=== PATIENT | male | born 1995 | race Hispanic/Latino ===

== ENCOUNTER 2017-11-25 14:18 | Emergency (ER) | payer SELFPAY ==
[2017-11-25] MEDS ORDERED: IBUPROFEN 600 MG TABLET ONE (15:19)
[2017-11-25] MEDS ORDERED: METOCLOPRAMIDE 10 MG TABLET ONE (15:19)
== END 2017-11-25 16:06 | disposition home or self-care (01) ==
LOC: EDH 14:18
DX: G43.909 Migraine, unspecified, not intractable, without status migrainosus (principal); Z88.8 Allergy status to other drugs, medicaments and biological substances; Z72.0 Tobacco use

== ENCOUNTER 2019-04-13 11:36 | Emergency (ER) | payer OTHER | END 2019-04-13 12:42 | disposition home or self-care (01) | LOC: EDH 11:36 | DX: G51.0 Bell's palsy (principal); F41.9 Anxiety disorder, unspecified; F32.9 Major depressive disorder, single episode, unspecified; Z72.0 Tobacco use; Z88.8 Allergy status to other drugs, medicaments and biological substances ==

== ENCOUNTER → 2025-09-17 | Emergency (ER) | payer SELFPAY ==
[~2025-09-17] VITALS: Ht 182.9 cm; Wt 108.9 kg
[~2025-09-17] MED LIST: AMOX-426 PO
--- NOTE | 2025-09-17 03:24 | ERN ---
ED Note History of Present Illness Stated Complaint: TOOTHACHE, EARACHE, HEADACHE Chief Complaint: Tooth Ache/Pain Time Seen by MD: 02:46 Dictation: This is a 29-year-old male who presented to the emergency room with complaints of severe toothache in the upper and lower jaws the last molars for the past few days. It has been worse in the last 2 days although he has been having pain off and on. Patient never saw a dentist and has never had any dental maintenance. No fever chills or rigors. Does state that his pain from the teeth radiates to his left side of the ear and he has left-sided headache Temperature 98 pulse 79 respirations 20 blood pressure 155/122 pulse oximetry 98% on room air Allergies: Coded Allergies: bupropion (Unverified Allergy, Unknown, 04/13/19) Past Medical History Past Medical History: No Pertinent History Surgical History: None Family History: Negative Social History: Negative RN Note Reviewed/Agreed w/PFSH: Yes Review of System Dictation Constitutional: Negative for fever,chills, and weight loss Eyes: Negative for injury, pain,redness, and discharge ENT: Negative for injury,pain or swelling severe pain in the upper and lower jaw the last molars with cavities and surrounding gum swelling. Cardiovascular: Negative for chest pain, palpitations, and edema Respiratory: Negative for shortness of breath, cough, and wheezing, Abdomen/GI: Negative for abdominal pain, nausea, vomiting, diarrhea, and constipation Back: Negative for injury and pain : Negative for injury, bleeding and discharge MS/Extremity: Negative for injury and deformity Skin: Negative for rash, and discoloration Neuro: Negative for headache, weakness, numbness, tingling, and seizure Psych: Negative for suicide ideation, homicidal ideation, and hallucinations Initial Vital Sign VS Vital Signs Date Time Temp Pulse Resp B/P (MAP) Pulse Ox O2 Delivery O2 Flow Rate FiO2 09/17/25 02:42 98.1 79 20 155/122 99 Room Air 0 09/17/25 02:47 21 Physical Exam Dictation General: awake, alert, NAD obese male Head/Face: Normocephalic, atraumatic mild facial flushing on the left side Eyes: PERRL, EOMI, vision at baseline ENT: oral cavity clear, TMs clear, no signs of infection left upper and lower jaw the last molars appear decayed with cavities and surrounding gingival swelling. Neck: Trachea midline, supple, no nuchal rigidity Cardiovascular: RRR, normal S1/S2, No MRGs, no JVD Respiratory: CTAB, no respiratory distress, No rales or wheezes Abdomen: Soft, non-tender, non-distended, normal bowel sounds, no guarding or rebound. Skin: Warm, dry, normal turgor, no rash MS/Extremity: Pulses equal, no cyanosis, neurovascular intact, FROM Neuro: COAx4, GCS 15, strength 5/5, CN 2-12 intact, normal cerebellar exam, normal gait, Psych: Normal behavior, mood, and affect normal Extremities-trace edema without any palpable cords, Homans sign is negative ED Course ED Course Orders Procedure Category Date Status Time Hydromorphone 0.5mg PHA 09/17/25 Complete Syg (Dilaudid 0.5mg 03:00 Ondansetron 4mg Inj PHA 09/17/25 Complete (Zofran 4mg Inj) 03:00 Dexamethasone 4mg/Ml PHA 09/17/25 Complete 1ml Vial (Dexametha 03:30 Amox/Clav 875/125mg PHA 09/17/25 Complete Tab (Augmentin 875-1 03:30 Current Medications Medications (Trade) Dose Ordered Sig/Tobias Route PRN Reason Start Time Stop Time Status Last Admin Dose Admin Amoxicillin/ Clavulanate Potassium (Augmentin 875-125 Tablet) 1 each ONCE ONCE PO 09/17/25 03:30 09/17/25 03:31 DC 09/17/25 03:49 Dexamethasone Sodium Phosphate (dexaMETHasone 4MG/ML 1ML VIAL) 6 mg ONCE ONCE IVP 09/17/25 03:30 09/17/25 03:31 DC 09/17/25 03:49 Hydromorphone HCl (DiLAUDid 0.5MG INJ) 0.5 mg ONCE ONCE IVP 09/17/25 03:00 09/17/25 03:01 DC 09/17/25 03:17 Ondansetron HCl (zoFRAN 4MG INJ) 4 mg ONCE ONCE IVP 09/17/25 03:00 09/17/25 03:01 DC 09/17/25 03:18 Vital Signs Date Time Temp Pulse Resp B/P (MAP) Pulse Ox O2 Delivery O2 Flow Rate FiO2 09/17/25 02:47 98.1 79 18 151/122 99 Room Air* 0 21 09/17/25 02:42 98.1 79 20 155/122 99 Room Air 0 Medical Decision Making MDM Differential diagnosis:dental cavities, dental caries, periodontitis, gingivitis, dental abscess This is a 29-year-old male who presented to the emergency room with complaints of severe toothache in the upper and lower jaws the last molars for the past few days. It has been worse in the last 2 days although he has been having pain off and on. Patient never saw a dentist and has never had any dental maintenance. No fever chills or rigors. Does state that his pain from the teeth radiates to his left side of the ear and he has left-sided headache Temperature 98 pulse 79 respirations 20 blood pressure 155/122 pulse oximetry 98% on room air I had a long discussion with the patient about dental hygiene and cavity treatments. I will provide symptomatic pain management as well as an empiric antibiotic therapy however I have recommended that he should see a dental surgeon and have his cavities and teeth addressed If he gets any worse with worsening symptoms high fevers facial swelling, he needs to return to the emergency room. Previous outside records reviewed: Old ER visits. Risk of complication and/or morbidity or mortality of patient management: None Medications-Per medication reconciliation Need for hospitalization: Patient does not meet criteria for hospitalization. Need for emergency major/minor surgery: No There are no social concerns with this patient. Prescription drug management Prescriptions will include symptomatic care Patient's prior external medical records from other ER visits were reviewed by me as indicated. Prior testing and results from previous visits were reviewed. Prior tests were taken into account with medical decision making and resource utilization, independent historian/historians were used to obtain complete medical history. I independently interpreted the test that were performed, results were reviewed by me and considered findings on radiology if ordered. Medical management and examination interpretation discussions were had by me with other qualified healthcare professionals as indicated for the patient's care. Problem List Problem List: (1) Toothache (2) Dental caries (3) Dental cavities DX & DISP Disposition: Discharge Departure Impression: Primary Impression: Toothache Additional Impressions: Dental caries, Dental cavities Condition: Stable Scripts Amoxicillin/Potassium Clav (Augmentin 500-125 Tablet) 500 Mg-125 Mg Tablet 1 TAB PO BID for 10 Days, #20 TAB 0 Refills Prov: THOPU,NATE R MD 09/17/25 Additional Instructions: Patient and the caregiver have been informed of all the diagnostic tests and the imaging conducted during the today's visit to the emergency room and has verbalized understanding of the results I have personally reviewed and interpreted all diagnostic exams performed here in the ER today as well as the vital signs documented by the nursing staff. The patient is now being di scharged to home and should follow up with the primary care physician or the specialist as directed by the ER staff. Referrals: GUY KILPATRICK (PCP) NATE MON MD Sep 17, 2025 03:24
[2025-09-17] MEDS: AMOX/CLAV 875/125MG TAB PO ONE (03:49)
[2025-09-17 04:20] VITALS: BP 142/75; PULSE 72; RESP 20; TEMP 98.1; O2SAT 100
== END ==
LOC: EDH 02:41
DX: K02.9 Dental caries, unspecified (principal); Z88.8 Allergy status to other drugs, medicaments and biological substances
CPT/HCPCS: 99284; 96374; 96375; J1100; J2405; J1171